=== PATIENT | female | born 2005 | race Caucasian/White ===

== ENCOUNTER 2024-09-02 06:58 | Outpatient (REF) | payer OTHER, SELFPAY ==
--- NOTE | ~2024-09-02 | US_ITS ---
CLINICAL HISTORY: MENORRHAGIA US pelvis transabdominal and transvaginal with color Doppler Comparison: None Findings: Transabdominal scanning performed for overall anatomy. Transvaginal scanning performed for additional detail. LMP: 08/28/2024 Anteverted uterus, normal size and echotexture, measuring 6.1 x 3.7 x 4.9 cm. Well defined endometrium, measuring 2.1 mm in thickness. Normal trilaminar appearance of the endometrium. The right ovary measures, 2.6 x 2.0 x 2.0 cm. Normal sonographic appearance right ovary. The left ovary measures, 2.7 x 2.4 x 2.2 cm. Cyst within a cyst measuring 2.2 x 1.8 x 1.8 cm probably physiologic. Consider follow-up ultrasound in 6 or 12 weeks time. No adnexal masses or fluid collections. No free fluid Impression: 1. Normal uteruswith normal trilaminar appearance of the endometrium. 2. Normal sonographic appearance right ovary. 3. Cyst within a cyst left ovary probably physiologic follow-up ultrasound in 6 or 12 weeks time until resolution is recommended. This document has been electronically signed by: Jeff Syed MD on 09/03/2024 07:38:15
== END 2024-09-02 06:59 | disposition home or self-care (01) ==
LOC: HO.UMASIMG 06:58
PROVIDERS: Visit Provider Registered Nurse
DX: Z30.09 Encounter for other general counseling and advice on contraception (principal); N92.0 Excessive and frequent menstruation with regular cycle
CPT/HCPCS: 76830; 76856

== ENCOUNTER → 2024-09-02 14:30 | Outpatient (BNV) | payer OTHER, SELFPAY | PROVIDERS: Visit Provider Radiology Diagnostic Radiology | DX: N83.202 Unspecified ovarian cyst, left side (principal) | CPT/HCPCS: 76830; 76856 ==

== ENCOUNTER 2024-11-04 06:51 | Outpatient (REF) | payer OTHER, SELFPAY ==
--- NOTE | ~2024-11-04 | US_ITS ---
EXAMINATION: US PELVIS CLINICAL INFORMATION: Ovarian cyst COMPARISON: 09/02/2024 TECHNIQUE: Ultrasound of the pelvis is performed using both transabdominal and transvaginal transducers along with Doppler. Transvaginal imaging is performed due to inadequate visualization transabdominally. FINDINGS: Uterus: The uterus is anteverted and measures 7.6 x 3.1 x 5.1 cm. Arcuate configuration. Normal cervix. The double wall endometrial thickness is 6 mm. It is uniform in appearance. The uterus is smooth in contour and has normal myometrial echogenicity. No visible fibroid. Prominent peripheral myometrial venous structures are present. Adnexa: Both ovaries are visualized. There is normal color flow to the adnexa. There is no ovarian torsion. There is mild to moderate anechoic free fluid, likely physiologic. No adnexal masses. Right ovary measures 2.1 x 1.4 x 1.7 cm. Volume = 2.5 mL. Normal sonographic appearance. Left ovary measures 3.1 x 1.6 x 2.1 cm. Volume = 5.6 mL. Previously seen cyst with daughter cyst has coalesced into a corpus luteal cyst measuring 1.8 x 1.1 x 1.2 cm. US/US pelvic and transvaginal IMPRESSION: 1. Arcuate configuration of the uterus with normal endometrium measuring 6 mm. 2. Prominent venous structures in the peripheral myometrium, nonspecific although pelvic congestion syndrome could be considered in the appropriate clinical setting. 3. Previously seen left ovarian follicular cyst with daughter cyst has coalesced into a 1.8 cm corpus luteal cyst. Electronically signed by: Mack Wood MD 11/04/2024 01:24 PM EDT
== END 2024-11-04 06:52 | disposition home or self-care (01) ==
LOC: HO.UMASIMG 06:51
PROVIDERS: Visit Provider Registered Nurse
DX: N83.299 Other ovarian cyst, unspecified side (principal)
CPT/HCPCS: 76830; 76856

== ENCOUNTER → 2024-11-04 12:48 | Outpatient (BNV) | payer OTHER, SELFPAY | PROVIDERS: Visit Provider Radiology Diagnostic Radiology | DX: N83.202 Unspecified ovarian cyst, left side (principal) | CPT/HCPCS: 76830; 76856 ==